=== PATIENT | female | born 1980 | race Caucasian/White ===

== ENCOUNTER 2021-01-22 17:49 | Emergency (ER) | payer OTHER ==
[~2021-01-22] VITALS: Ht 170.2 cm; Wt 102.5 kg
[~2021-01-22 17:49] MED LIST: ACET325 PO; AMOCLA875 PO; AMOX500 PO; CEPH500 PO; CYCL10 PO; DIAZ2 PO; DICL25ER PO; HYDACE5 PO; IBUP400 PO; IBUP600 PO; IBUP800 PO; KETO10 PO; KETO75 PO; LORA1 PO; MEDR150I IM; NAPR500 PO; NYST237S MT; ONDA8 PO; ONDA8ODT MM; OXYACE5T PO; PROM25 PO; PROM25S PR; RXCYCL10 PO; RXOXYACE PO; RXTRAM50 PO; TRAM50 PO; TRAZ50 PO; Veetids 500500 MG PO
== END 2021-01-22 19:05 | disposition home or self-care (01) ==
LOC: ER 17:49
DX: L50.9 Urticaria, unspecified (principal)
CPT/HCPCS: 99282; A9270; J7512

== ENCOUNTER 2021-05-23 23:01 | Emergency (ER) | payer OTHER ==
[~2021-05-23] VITALS: Ht 170.2 cm; Wt 107.0 kg
[2021-05-24] MEDS ORDERED: LIDO700A20 TOP (00:10)
[2021-05-24] MEDS ORDERED: CYCL10 PO (00:10)
== END 2021-05-24 00:54 | disposition home or self-care (01) ==
LOC: ER 23:01
DX: S09.90XA Unspecified injury of head, initial encounter (principal); S16.1XXA Strain of muscle, fascia and tendon at neck level, initial encounter; V89.2XXA Person injured in unspecified motor-vehicle accident, traffic, initial encounter
CPT/HCPCS: 70450; 72125; 99284-25; A9270; L0160